=== PATIENT | male | born 1940 | race Caucasian/White ===

== ENCOUNTER 2017-04-27 07:00 | Day surgery (SDC) | payer MEDICARE ==
[~2017-04-27 07:00] MED LIST: ACETAMINOPHEN 1,000 MG/100 ML BTL IV ONE
--- NOTE | 2017-04-27 13:10 | Operative Note ---
DATE OF SURGERY: 04/27/2017 Surgeon: Crescencio Navas DO PREOPERATIVE DIAGNOSES: 1. Torn medial meniscus of the left knee. 2. Osteoarthritis of the left knee. POSTOPERATIVE DIAGNOSES: 1. Torn medial meniscus of the left knee. 2. Osteoarthritis of the left knee. OPERATION: 1. Arthroscopic partial medial meniscectomy of the left knee. 2. Arthroscopic chondroplasty of the lateral tibial plateau, left knee. DESCRIPTION OF PROCEDURE: This 76-year-old male was taken to the operating room and placed in the supine position on the operating room table. A general anesthetic was administered and the left lower extremity was elevated, exsanguinated, and the tourniquet inflated to 300 mmHg. Arthroscopic knee ferrari applied. Left knee prepped with Hibiclens and draped in the usual sterile fashion. An inferior lateral portal was established for the 4 mm arthroscope and initial evaluation of the joint demonstrated normal appearance of the suprapatellar pouch but severe degenerative arthritis of the patellofemoral joint was identified with a severe full-thickness defect of the patella only approximately 30% of the articular cartilage remained on the patella, and even that was not normal. The trochlea demonstrated grade 4 lesion as well with full-thickness defect in the center of the trochlea and towards the lateral side of the trochlea. The articular cartilage was not grossly unstable and was not further disturbed. The medial compartment was entered and a tear of the posterior horn of the medial meniscus was present. It appeared to be a degenerative-type tear. Flap tear was noted and utilizing the basket forceps, we resected unstable fragments of the meniscus. This was removed from the joint. The patient had grade 3 chondromalacia of the medial femoral condyle as well but it was not grossly unstable. The intracondylar notch was examined and the ACL was seen to be normal. The lateral compartment was entered and the lateral meniscus appeared to be normal. However, the articular cartilage of the tibial plateau demonstrated full-thickness defect towards the medial side of the center of the articular cartilage of the lateral femoral condyle. This lesion was approximately 2 cm in greatest dimension with loose flaps of articular cartilage being present. Utilizing the basket forceps and rotating shaver, we resected unstable fragments of the articular cartilage there and it was further probed and found to be stable. The joint was then copiously irrigated. There were multiple cartilaginous loose joint bodies present within the joint, and they were suctioned from the joint. The instruments were removed. The portals infiltrated with 0.25% Marcaine with epinephrine. Sterile dressings were applied after a single stitch of 4-0 nylon suture was placed in each portal. The patient taken to the recovery room in satisfactory condition. GROSS PATHOLOGY: The patient demonstrated advanced osteoarthritis at the patellofemoral joint. 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 SALMA
[2017-04-27] MEDS ORDERED: BUPIVACAINE 0.25% W/EPI MPF 30ML VIAL IVP ONE (13:34)
[2017-04-27] MEDS ORDERED: METOCLOPRAMIDE 10 MG TABLET PO ONE (13:41)
[2017-04-27] MEDS ORDERED: MECLIZINE 25 MG TABLET PO ONE (13:41)
[2017-04-27] MEDS ORDERED: FAMOTIDINE 20MG TABLET PO ONE (13:41)
[2017-04-27] MEDS ORDERED: HYDROCODONE/APAP 7.5/325MG TABLET PO ONE (13:41)
[2017-04-27] MEDS ORDERED: SEVOFLURANE 250 ML INH ONE (15:35)
[2017-04-27] MEDS ORDERED: PROPOFOL 10 MG/ML VIAL IV ONE (15:35)
[2017-04-27] MEDS ORDERED: EPHEDRINE SULFATE 50 MG/ML ML IV ONE (15:35)
[2017-04-27] MEDS ORDERED: MIDAZOLAM HCL 2MG/2ML VIAL IV ONE (15:35)
[2017-04-27] MEDS ORDERED: KETOROLAC 30 MG/ML VIAL IVP ONE (15:35)
[2017-04-27] MEDS ORDERED: HYDROMORPHONE HCL 2 MG/ML VIAL IV ONE (15:35)
[2017-04-27] MEDS ORDERED: LIDOCAINE 2% MDV (20MG/ML) 20ML VIAL IV ONE (15:35)
[2017-04-27] MEDS ORDERED: NALOXONE 0.4 MG/1 ML VIAL IVP ONE (15:35)
== END 2017-04-27 10:01 | disposition home or self-care (01) ==
LOC: SUR 07:00
PROVIDERS: ATTEND Orthopaedic Surgery
DX: S83.242A Other tear of medial meniscus, current injury, left knee, initial encounter (principal); I25.810 Atherosclerosis of coronary artery bypass graft(s) without angina pectoris; E11.9 Type 2 diabetes mellitus without complications; Z79.4 Long term (current) use of insulin; I10 Essential (primary) hypertension
CPT/HCPCS: 29881; 01400; J1885; J1170; J2310

== ENCOUNTER 2017-05-19 09:02 | Emergency (ER) | payer MEDICARE ==
--- NOTE | 2017-05-19 09:21 | Emergency Department Record ---
History of Present Illness - General Chief Complaint: Knee injury Stated Complaint: KNEE PAIN Time Seen by Provider: 05/19/17 09:15 Source: Patient Mode of Arrival: Wheelchair Limitations: No limitations - History of Present Illness Initial Comments: 76 yo male presents to ED for evaluation of injury to the left knee while golfing last night. Patient reports recent arthroscopy of the left knee 4 weeks ago, was given clearance for regular activity 12 week ago. Patient reports pain with ambulation, pain with attempted knee flexion. Patient denies fevers, chills, redness, or warmth to the knee. Patient also reports swelling to the knee and bruising to the popliteal region. MD Complaint: Knee injury Onset/Timin -: Days(s) Injury: Knee: Left Type of Injury: Unknown Place: Street/outdoors Severity: Severe Improves With: Immobilization Worsens With: Weight bearing Context: Fall Associated Symptoms: Unable to bear weight Treatments Prior to Arrival: Other - Related Data Home Medications Medication Instructions Recorded Confirmed Last Taken Insulin Glargine,Hum.rec.anlog 70 unit SQ QHS 05/19/17 05/19/17 Unknown [Lantus] Losartan Potassium [Losartan 25 mg PO DAILY 05/19/17 05/19/17 Unknown Potassium] Previous Rx's Medication Instructions Recorded Hydrocodone/Acetaminophen [[place] 1 tab PO Q6H PRN #15 tab 05/19/17 5mg/325mg] Allergies Allergy/AdvReac Type Severity Reaction Status Date / Time No Known Drug Allergies Allergy Verified 05/19/17 09:09 Travel Screening - Travel/Exposure Within Last 30 Days Have you traveled within the last 30 days?: No Review of Systems Constitutional: Denies: Chills, Fever, Malaise, Night sweats Eyes: Denies: Eye discharge, Eye pain ENT: Denies: Congestion, Ear pain Respiratory: Denies: Cough, Dyspnea Cardiovascular: Denies: Chest pain, Dyspnea on exertion Endocrine: Denies: Fatigue, Heat or cold intolerance Gastrointestinal: Denies: Abdominal pain, Nausea, Vomiting Genitourinary: Denies: Incontinence, Retention Musculoskeletal: Reports: Arthralgia, Joint swelling Skin: Reports: Bruising. Denies: Change in color Neurological: Denies: Abnormal gait, Confusion, Headache, Seizure Psychiatric: Denies: Anxiety Hematological/Lymphatic: Denies: Anemia, Blood Clots Past Medical History - SOCIAL HISTORY Smoking Status: Former smoker Alcohol Use: None Drug Use: None - RESPIRATORY Hx Respiratory Disorders: Yes Hx Pneumonia: Yes - CARDIOVASCULAR Hx Cardio Disorders: Yes Hx Cardiac Cath: Yes Hx Heart Attack: No Hx Hypertension: Yes Hx Coronary Artery Disease: Yes Hx Coronary Artery Bypass Graft: Yes (2010) - NEURO Hx Neuro Disorders: No - GI Hx GI Disorders: Yes Hx Reflux: Yes (occassionally with certain foods) - Hx Genitourinary Disorders: No - ENDOCRINE Hx Endocrine Disorders: Yes Hx Diabetes: Yes - MUSCULOSKELETAL Hx Musculoskeletal Disorders: Yes Hx Arthritis: Yes - PSYCH Hx Psych Problems: No - HEMATOLOGY/ONCOLOGY Hx Hematology/Oncology Disorders: No Family Medical History Any Significant Family History?: Yes Hx Cancer: Brother/Sister Hx Diabetes: Mother Hx Heart Disease: Mother Physical Exam - General General Appearance: Alert, Oriented x3, Cooperative, Moderate distress Limitations: No limitations - Head Head exam: Atraumatic, Normocephalic, Normal inspection Head exam detail: negative: Abrasion, Contusion, Maria's sign, General tenderness, Hematoma, Laceration - Eye Eye exam: Normal appearance. negative: Conjunctival injection, Periorbital swelling, Periorbital tenderness, Scleral icterus - ENT Ear exam: negative: Auricular hematoma, Auricular trauma Nasal Exam: negative: Active bleeding, Discharge, Dried blood, Foreign body Mouth exam: negative: Drooling, Laceration, Muffled voice, Tongue elevation - Neck Neck exam: Normal inspection. negative: Meningismus, Tenderness - Respiratory Respiratory exam: Normal lung sounds bilaterally. negative: Rales, Respiratory distress, Rhonchi, Stridor - Cardiovascular Cardiovascular Exam: Regular rate, Normal rhythm, Normal heart sounds Peripheral Pulses: 3+: Dorsalis Pedis (L) - GI/Abdominal GI/Abdominal exam: Soft. negative: Rebound, Rigid, Tenderness - Rectal Rectal exam: Deferred - exam: Deferred - Extremities Extremities exam: Joint swelling, Other (STS to the infrapatellation region, popliteal region with mild ecchymosis posteriorly. Ligaments are stable on examination however testing is limited by pain.). negative: Calf tenderness, Pedal edema, Tenderness - Back Back exam: Denies: CVA tenderness (R), CVA tenderness (L) - Neurological Neurological exam: Alert, Oriented X3. negative: Motor sensory deficit - Psychiatric Psychiatric exam: Normal affect, Normal mood - Skin Skin exam: Normal color. negative: Abrasion Type of lesion: negative: abrasion Course Vital Signs 05/19/17 09:05 Temperature 97.9 F Pulse Rate 89 Respiratory 20 Rate Blood Pressure 166/80 Pulse Ox 95 - Reevaluation(s) Reevaluation #1: 05/19/17 09:42 Left knee: Effusion present, otherwise negative. Patient was updated on radiology results, will place in a knee immobilizer and crutches with instructions to follow-up in the [facility] with Dr. Springer later this week for further evaluation. Disposition Disposition: Discharge Clinical Impression: Knee injury Qualifiers: Encounter type: initial encounter Laterality: left Qualified Code(s): S89.92XA - Unspecified injury of left lower leg, initial encounter Disposition: Home, Self-Care Condition: (2) Stable Instructions: Posterior Cruciate Ligament Injury (ED), Swollen Knee Joint (ED) Additional Instructions: Return to ED if your symptoms worsen or if you have any concerns. [place] as directed. Knee immobilizer/crutches as needed. Follow-up with Dr. Springer later this week in the [facility]. Prescriptions: Hydrocodone/Acetaminophen [[place] 5mg/325mg] 1 tab PO Q6H PRN #15 tab PRN Reason: Pain - General Referrals: DIETER SPRINGER [DOCTOR OF OSTEOPATH] - [facility] [Provider Group] Forms: Patient Portal Access Time of Disposition: 09:44 Quality - Quality Measures Quality Measures: N/A - Blood Pressure Screening Does Patient Have Any of the Following: Active Dx of HTN Blood Pressure Classification: Pre-Hypertensive BP Reading Systolic Measurement: 166 Diastolic Measurement: 80 Screening for High Blood Pressure: Patient Exclusion, Hx of HTN [[id number]]
--- NOTE | 2017-05-19 14:15 | RADIOLOGY REPORT ---
EXAM: KNEE, LEFT 3 VIEWS HISTORY: KNEE PAIN. TECHNIQUE: Three views of the left knee. COMPARISON: None. ENCOUNTER: Initial. FINDINGS: Negative for an acute fracture or dislocation. Tricompartmental degenerative change. Soft tissues are unremarkable. IMPRESSION: TRICOMPARTMENTAL DEGENERATIVE CHANGE. JOB NUMBER: [id number] MTDD
== END 2017-05-19 10:14 | disposition home or self-care (01) ==
LOC: ER 09:02
DX: S89.92XA Unspecified injury of left lower leg, initial encounter (principal); X58.XXXA Exposure to other specified factors, initial encounter; Y93.53 Activity, golf
CPT/HCPCS: 99283